=== PATIENT | female | born 1955 | race Caucasian/White ===

== ENCOUNTER 2024-07-11 07:28 | Day surgery (SDC) | payer MEDICARE, SELFPAY ==
--- NOTE | 2024-07-11 | IMM_PTH ---
PATIENT: PAULIE ZELAYA LOC: EN U#:[id number] AGE/SX: 68/F ROOM: RE07/11/[address]: Dr. Pedro Emerson DO : 1955 BED: DIS: 07/11/2024 SPEC #: [id number] RECD: 07/12/24 14:13 STATUS: [place] REQ #: [id number] EVA: 07/11/24 00:[address]: Pedro Emerson DEPT: IMMUNOHISTOCHEMISTRY RECD BY: Emanuel Pickering ENTERED: 07/12/24 14:13 SP TYPE: IMMUNO OTHR DR: SLOAN LÓPEZ, STREET ENGINEER-C Tissues: B - Stomach, NOS Procedures: H Pylori (initial) PHYSICIAN & INSTITUTION [place] [id number] SPECIMEN INFORMATION: Tissue Source: B- Greater curvature Clinical Info: Acid reflux, esophageal dysmotility Specimen Number: [id number] CPT code: 96625 METHODOLOGY: Deparaffinized sections of prefer/formalin-fixed tissue or PAP/DQ stained slides are incubated with monoclonal/polyclonal antibodies/oligonucleotide probes. Localization is made via biotin free immunoperoxidase method. Appropriate controls are performed and reacted as expected. Results on target cell population are indicated in the following table: RESULTS: ANTIBODY / CLONE RESULT Block B H Pylori (polyclonal) negative These tests were developed and their performance characteristics determined by [facility]. They may not have been cleared or approved by the U.S. Food and Drug Administration. The FDA has determined that such clearance or approval is not necessary. The above immunohistochemical/dualISH markers are ordered and reviewed by the Pathologist. INTERPRETATION: B. Stomach, greater curvature, biopsy: Negative for Helicobacter pylori organisms. AM. 07/13/2024
[2024-07-11 07:48] VITALS: BP 132/64; PULSE 66; RESP 20; TEMP 35.9; O2SAT 99; BMI 33.7
--- NOTE | 2024-07-11 07:50 | PCM.PRE.AN2 ---
ASA Classification* ASA Classification ASA Classification: 2 Assessment & Plan Anesthesia* Anesthesia Assessment Anesthesia Assessment: Discussed sedation and/or anesthesia options, risks, benefits, and alternatives with patient/parents/legal guardian/POA. Questions invited. The patient/parents/legal guardian/POA seems to understand and agrees to proceed with anesthesia plan. Reviewed the physical assessment, medical history, allergy history and patient home medications list prior to surgery/procedure/anesthetic and documented any changes. Performed airway and anesthesia risk assessments. Anesthesia Type Anesthesia Type: MAC Anesthesia Focused Assessment* Airway Assessment Mouth opens: >3 cm Mallampati Score: II Focused Labs Anesthesia Preop lab: CBC CHEMISTRY COAG Pre-Assessment Diagnosis/Proposed Procedure Planned Operative Procedure(s): EGD Anesthesia History Anesthesia History - roll tube setter: Anesthesia History - roll tube setter Hx Hospitalization No 07/07/24 15:47 Any Problems With Anesthesia No 07/07/24 15:47 Cholinesterase deficiency No 07/07/24 15:47 You/Your Family Experience No 07/07/24 15:47 fever (hyperthermia) with Relationship Recent Exposure to Contagious Disease Does patient have nerve No 07/07/24 15:47 stimulator Patient instructed to have device shut off --Does patient have Pacemaker or ICD? When Was Last Pacemaker Check QUESTION #4 FULL TEXT: You/Your Family Experience fever (hyperthermia) with Anesthesia Last Oral Intake Last Oral intake: Last Oral Intake NPO since Meds taken in AM with sips of water? Meds patient instructed to take am of surgery PONV PONV - roll tube setter: PONV - roll tube setter Female Yes 07/07/24 15:47 HX of Motion Sickness No 07/07/24 15:47 HX of N/V After Surgery No 07/07/24 15:47 Non-Smoker Yes 07/07/24 15:47 Duration of Surgery greater No 07/07/24 15:47 than 60 minutes Number of Risk Factors 2 07/07/24 15:47 PONV Score Moderate Risk 07/07/24 15:47 Respiratory Assessment Respiratory Assessment - roll tube setter: Respiratory Tract Infection Hx - roll tube setter Hx Respiratory Tract Infection No 07/07/24 15:47 STOP Sleep Apnea STOP Sleep Apnea - roll tube setter: STOP Sleep Apnea - roll tube setter Hx Hypertension No 07/07/24 15:47 Hx Sleep Apnea No 07/07/24 15:47 CPAP BIPAP Do you snore loudly (louder No 07/07/24 15:47 than talking or can be heard Do you often feel tired/ No 07/07/24 15:47 fatigued/ sleepy during daytime? Has anyone observed you stop No 07/07/24 15:47 breathing during sleep? STOP Results Negative 07/07/24 15:47 QUESTION #5 FULL TEXT : Do you snore loudly (louder than talking or can be heard through closed doors)? 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 Specify any problems Hx of Preganancy in last 3 No 07/07/24 15:47 Months Nurse Filling Out Transfusion [email or web address] 07/07/24 15:47 & Questions: Date: 07/07/24 07/07/24 15:47 Time: 15:49 07/07/24 15:47 Patient unable to answer at this time (ie. confused, unrespo /Reproduction History /Reproductive History - roll tube setter: /Reproductive Hx- roll tube setter Hx Now Gestational Age (in weeks): EDC: Hx Hx Para Hx Section SAB PFSH Medical History Wears glasses Migraine headache History of hiatal hernia Difficulty swallowing Non-smoker Home Medications ?Medication ?Instructions ?Recorded ?Last Taken ?Type lactobacillus combination no.4 3 3,000 mmu cells PO DAILY 07/07/24 07/10/24 History billion cell capsule (Probiotic) multivitamin (Daily Multi-Vitamin 1 tab PO DAILY 07/07/24 07/10/24 History tablet) turmeric 400 mg capsule 400 mg PO DAILY 11/21/24 11/24/24 History Allergy/AdvReac Type Severity Reaction Status Date / Time codeine Allergy Nausea Verified 07/11/24 07:48 Surgical History H/O wrist surgery History of hip replacement H/O esophagogastroduodenoscopy Social History Smoking Status: Never smoker Review of Systems (Anesthesia) ROS Narrative System reviewed and no additional complaints, except as documented.
--- NOTE | 2024-07-11 08:10 | HP.PCM_ITS ---
History and Physical Date of Admission: 07/11/24 Chief Complaint: Acid reflux and trouble swallowing Details: PAULIE ZELAYA, is a 68 F who presents to the office today for establishment with [facility] for complaints of difficulty swallowing and heartburn. She denies difficulty chewing, nausea, reflux, abdominal bloating, excessive gas, constipation and diarrhea. Denies hematochezia and melena. Reports mother from colon cancer, last colonoscopy was in 2018 and does not want another one. She states her last EGD was in 2018 as well and she had her esophagus dilated. She is constantly clearing her throat and reports a few occasions where she has gotten food, usually meats or breads, stuck in her esophagus. She is able to drink water to get the food down, but it seems to be taking longer. She reports sensitivities to grains in the form of breads, causes her stomach to burn. She touts a homeopathic life with organic foods and states preference for diagnostic testing over treating blindly. She reports a grain intolerance which causes her to have increased burning sensation in her stomach, and she knows to limit consumption. ROS Const Constitutional: No fatigue, fever(s) or weight change Eyes Eyes: No change in vision ENT ENT: No abnormal hearing or difficulty swallowing Resp Respiratory: Positive for cough Cardio Cardiology: No chest pain at rest, chest pain with exertion or leg pain with exertion Gastro GI: Positive for heartburn; No abdominal pain, belching, bloating, change in bowel habits, change in stool character, coffee ground emesis, constipation, cramping, diarrhea, difficulty swallowing, feeling full early, excessive flatus, incontinent of stools, Vomiting blood/hematemesis, Blood in stool, loose stools, Black,tarry stools, nausea/dyspepsia, pain with swallowing, vomiting or other Genitourinary-Female: No difficulty urinating Musc Musculoskeletal: Positive for joint pain, stiffness and sciatica; No abnormal gait or leg pain with exertion Skin Skin: No yellowing of the eye or itchy eyes Neuro Neurology: No abnormal gait or abnormal hearing Psych Psychiatric: No anxiety and No depression Endo Endocrine: No fatigue or weight change Aller/Imm Allergy/Immunologic: No food intolerance or itchy eyes Jan/Lymp Hematologic/Lymphatic: No easy bleeding or easy bruising Exam Const General: cooperative, healthy appearing, comfortable and no acute distress Nutritional Appearance: overweight Orientation: alert HENMT Head: normal to inspection Ears: hearing grossly normal bilaterally Nose: external nose normal Face and sinus: normal facial exam and face symmetric Eyes General: appearance normal, both eyes and all related structures Sclera: sclerae normal Neck Neck: normal visual inspection and full ROM Neck mass: No Chest Chest palpation & inspection: normal inspection of the chest Resp Effort & Inspection: normal respiratory effort, able to speak in complete sentences and symmetric chest movement GI Inspection: normal to inspection Skin General: no rashes or lesions noted Neuro General: patient alert, patient awake and patient oriented x3 Cognition: normal cognition Speech: speech normal Gait: normal gait Extrem General: full ROM Psych Appearance: well kempt Mental Status: mental status grossly normal Mood: congruent mood Affect: normal affect Speech and Movement: speech and movement normal Attitude: cooperative Thought Process: normal Assessment and Plan Assessment and Plan (1) Acid reflux: Status: Acute (2) Esophageal dysmotility: Status: Acute Plan: PAULIE ZELAYA, is a 68 F who presents to the office today for establishment with [facility] for complaints of difficulty swallowing and heartburn. Differential diagnoses include: EoE, esophageal spasm, esophageal stricture, GERD, gastroparesis. She is adamant in avoiding PPI, and most other medications as she is choosing to treat herself with natural remedies. Discussed risks of untreated GERD, including esophageal cancer, and she prefers to have EGD over treatment with PPI. * blood for food allergy, celiac disease testing and B12 level * EGD w/balloon for history of esophageal stricture * call with results Orders: Orders Celiac Disease Profile Today K30 - Functional dyspepsia, K31.84 - Gastroparesis I have examined the patient and the H&P has been reviewed. There are no clinical changes since date of exam.
--- NOTE | 2024-07-11 08:30 | EGD_PTH ---
PATIENT: PAULIE ZELAYA LOC: EN U#:[id number] AGE/SX: 68/F ROOM: RE07/11/[address]: Dr. Pedro Emerson DO : 1955 BED: DIS: 07/11/2024 SPEC #: [id number] RECD: 07/11/24 10:21 STATUS: C[place] REDelfino #: [id number] EVA: 07/11/24 08:[address]: Pedro Emerson DEPT: SURGICAL PATHOLOGY RECD BY: Marycarmen Dodson ENTERED: 07/11/24 11:22 SP TYPE: EGD BIOPSY OTHR DR: SLOAN LÓPEZ, JOIE Tissues: A - Esophagus, NOS B - Esophagus, NOS Procedures: Special Stain Group I Surgery Specimen Level IV Alcian Blue/PAS (control) HEADER OPERATION: EGD with biopsy, dilation PRE-OP DIAGNOSIS: Acid reflux, esophageal dysmotility TISSUE SUBMITTED: A- Distal esophagus biopsy, B- Greater curvature MICROSCOPIC DIAGNOSIS A. Distal esophagus, biopsy: Gastroesophageal junction mucosa with mild chronic inflammation. No evidence of goblet cell metaplasia. See comment. B. Stomach, greater curvature, biopsy: Mild chronic inflammation. Focal vascular ectasia. See comment. 07/12/2024 COMMENT A. Alcian blue/PAS stain with matched control supports the above diagnosis. B. The results of immunohistochemistry for Helicobacter pylori will be reported separately ([id number]). MICROSCOPIC DESCRIPTION Slides are reviewed. GROSS DESCRIPTION A. Received in fixative is one container labeled with the patient's name and designated Distal esophagus biopsy. The specimen consists of multiple irregular fragments of light rangel soft tissue that in aggregate measure 1.0 x 0.7 x 0.1 cm. The specimen is totally submitted in one cassette. B. Received in fixative is one container labeled with the patient's name and designated Greater curvature. The specimen consists of two irregular fragments of light rangel soft tissue that in aggregate measure 0.8 x 0.3 x 0.1 cm. The specimen is totally submitted in one cassette. AMPedromr 07/11/2024 TC:3 CPT:76891r6,66247
[2024-07-11 08:55] VITALS: BP 104/54; BP 132/64; PULSE 77; RESP 16; TEMP 36.3; O2SAT 93
--- NOTE | 2024-07-11 08:56 | OP.EGD_ITS ---
Patient Name: Jacy Vasquez Procedure Date: 07/11/2024 8:34 AM Date of : 1955 Age: 68 Procedure: Upper GI endoscopy Indications: Dysphagia Providers: Pedro Emerson DO Referring MD: Kelley French Medicines: Monitored Anesthesia Care Patient Profile: This is a 68 year old female. Refer to note in patient chart for documentation of history and physical. Patient has symptoms of chronic dysphagia and dysphagia with both liquids and solids. Complications: No immediate complications. Procedure: Pre-Anesthesia Assessment: - Prior to the procedure, a History and Physical was performed, and patient medications and allergies were reviewed. The patient is competent. The risks and benefits of the procedure and the sedation options and risks were discussed with the patient. All questions were answered and informed consent was obtained. Patient identification and proposed procedure were verified by the physician in the pre-procedure area. Mental Status Examination: alert and oriented. Airway Examination: normal oropharyngeal airway and neck mobility. Respiratory Examination: clear to auscultation. CV Examination: normal. Prophylactic Antibiotics: The patient does not require prophylactic antibiotics. Prior Anticoagulants: The patient has taken no anticoagulant or antiplatelet agents except for NSAID medication. ASA Grade Assessment: II - A patient with mild systemic disease. After reviewing the risks and benefits, the patient was deemed in satisfactory condition to undergo the procedure. The anesthesia plan was to use monitored anesthesia care (MAC). Immediately prior to administration of medications, the patient was re-assessed for adequacy to receive sedatives. The heart rate, respiratory rate, oxygen saturations, blood pressure, adequacy of pulmonary ventilation, and response to care were monitored throughout the procedure. The physical status of the patient was re-assessed after the procedure. After obtaining informed consent, the endoscope was passed under direct vision. Throughout the procedure, the patient's blood pressure, pulse, and oxygen saturations were monitored continuously. The Endoscope was introduced through the mouth, and advanced to the second part of duodenum. The upper GI endoscopy was accomplished without difficulty. The patient tolerated the procedure well. Scope In: 8:44:00 AM Scope Out: 8:49:41 AM Total Procedure Duration Time 0 hours 5 minutes 41 seconds Findings: A moderate Schatzki ring was found in the upper third of the esophagus and in the lower third of the esophagus. A guidewire was placed and the scope was withdrawn. Dilation was performed with a Savary dilator with no resistance at 57 Fr. LA Grade B (one or more mucosal breaks greater than 5 mm, not extending between the tops of two mucosal folds) esophagitis with no bleeding was found 40 to 42 cm from the incisors. Biopsies were taken with a cold forceps for histology. Verification of patient identification for the specimen was done. Estimated blood loss was minimal. A medium-sized hiatal hernia was present. Many non-bleeding linear gastric ulcers with no stigmata of bleeding were found on the greater curvature of the stomach and at the incisura. The largest lesion was 10 mm in largest dimension. Biopsies were taken with a cold forceps for histology. Verification of patient identification for the specimen was done. Biopsies were taken with a cold forceps for Helicobacter pylori testing. Verification of patient identification for the specimen was done. No gross lesions were noted in the first portion of the duodenum. Impression: - Moderate Schatzki ring. Dilated. - LA Grade B reflux esophagitis with no bleeding. Biopsied. - Medium-sized hiatal hernia. - Non-bleeding gastric ulcers with no stigmata of bleeding. Biopsied. - No gross lesions in the first portion of the duodenum. Recommendation: - Await pathology results. - Repeat upper endoscopy in 4 months for surveillance. -Omeprazole 20 mg twice a day x 4 months - Continue present medications. Procedure Code(s): --- Professional --- 98506, Esophagogastroduodenoscopy, flexible, transoral; with insertion of guide wire followed by passage of dilator(s) through esophagus over guide wire 65384, 59,51, Esophagogastroduodenoscopy, flexible, transoral; with biopsy, single or multiple CPT copyright 2021 [employer]. All rights reserved. The codes documented in this report are preliminary and upon kick press operator review may be revised to meet current compliance requirements. Pedro Emerson DO 07/11/2024 8:55:38 AM This report has been signed electronically. Number of Addenda: 0 Note Initiated On: 07/11/2024 8:34 AM
--- NOTE | 2024-07-11 08:56 | OP.CCLET_ITS ---
07/11/2024 Kelley French Re : Upper GI endoscopy procedure for Jacy Vasquez Dear Ruiz This procedure was performed on Thursday, July 11, 2024. My impressions and recommendations are as follows: Impressions : - Moderate Schatzki ring. Dilated. - LA Grade B reflux esophagitis with no bleeding. Biopsied. - Medium-sized hiatal hernia. - Non-bleeding gastric ulcers with no stigmata of bleeding. Biopsied. - No gross lesions in the first portion of the duodenum. Recommendations : - Await pathology results. - Repeat upper endoscopy in 4 months for surveillance. -Omeprazole 20 mg twice a day x 4 months - Continue present medications. My findings are described in the full procedure note, which is enclosed. If I can be of further assistance, please feel free to contact me at . Sincerely, Pedro Emerson, 07/11/2024 8:55:38 AM This report has been signed electronically.
[2024-07-11 09:00] VITALS: BP 104/54; BP 115/67; BP 132/64; PULSE 67; PULSE 72; RESP 16; TEMP 36.3; O2SAT 93; O2SAT 96
--- NOTE | 2024-07-11 09:00 | PCM.POST.ANE ---
Anesthesia: Postop Eval I Current Vital Signs Temperature: 97.3 F Pulse Rate: 67 Blood Pressure: 104/54 Respiratory Rate: 16 Pulse Ox: 96 Oxygen Delivery Method: Room Air Assessment Airway patent: Yes Spontaneous unlabored respirations: Yes Mental status: Awake and Calm nausea: No Vomiting: No Anesthesia Complication: No Fluid Hydration Crystalloid volume administer (ml): 30 Total IV fluid infused: 30 Progress Note Anesthesia document: Postop Eval 1 completed: Yes
[2024-07-11 09:05] VITALS: BP 116/73; BP 132/64; PULSE 68; RESP 16; O2SAT 92
[2024-07-11 09:10] VITALS: BP 106/71; BP 132/64; PULSE 66; RESP 16; TEMP 36.1; O2SAT 93
--- NOTE | 2024-07-11 09:22 | PCM.POSTANE2 ---
Anesthesia Postop Eval I Sum Postop Eval Completion status Anesthesia document: Postop Eval 1 completed: Yes Anesthesia Postop Eval I Summary Anesthesia Postop Eval I Summary: Anesthesia Postop Eval I: Assessment Summary Airway patent Yes 07/11/24 09:00 [email or web address] Spontaneous unlabored Yes 07/11/24 09:00 [email or web address] respirations Mental status Awake,Calm 07/11/24 09:00 [email or web address] nausea No 07/11/24 09:00 [email or web address] Vomiting No 07/11/24 09:00 [email or web address] Anesthesia Postop Eval I: Fluid Summary Crystalloid volume administer 30 07/11/24 09:00 [email or web address] (ml) Colloids volume administered ( ml) Blood Product volume administered (ml) Total IV fluid infused 30 07/11/24 09:00 [email or web address] Anesthesia Postop Eval I: Summary Notes Anesthesia Complication No 07/11/24 09:00 [email or web address] Anesthesia Complication Comment: Post-operative progress note Anesthesia: Postop Eval II Evaluation Mental status: Awake Pain Level: 1 nausea: No Vomiting: No
[2024-07-11 09:40] VITALS: BP 132/64
== END 2024-07-11 09:40 | disposition home or self-care (01) ==
LOC: EN 07:29 → AC 07:45
PROVIDERS: PCP Nurse Practitioner Family; Referring Provider Nurse Practitioner Family; Visit Provider Internal Medicine Gastroenterology
PROC: 0DJ08ZZ Inspection of Upper Intestinal Tract, Via Natural or Artificial Opening Endoscopic (ICD-10-PCS; CPT 43235; principal; 2024-07-11 08:25)
DX: K44.9 Diaphragmatic hernia without obstruction or gangrene (principal); K25.9 Gastric ulcer, unspecified as acute or chronic, without hemorrhage or perforation; K22.4 Dyskinesia of esophagus; K22.2 Esophageal obstruction; K21.00 Gastro-esophageal reflux disease with esophagitis, without bleeding
CPT/HCPCS: 43248; 43239; 88305; 88312; 88342; A4216; C1769; J2405

== ENCOUNTER → 2024-09-29 | Outpatient (CLI) | payer MEDICARE, SELFPAY ==
--- NOTE | 2024-09-29 11:50 | NM_ITS ---
PROCEDURE: GASTRIC EMPTYING STUDY REASON FOR EXAM: Gastroparesis. TECHNIQUE: Nuclear medicine solid phase gastric emptying study. Imaging out to 60 minutes. RADIOPHARMACEUTICAL: 1.1 mCi technetium 99 M sulfur colloid in oatmeal. COMPARISON: None. FINDINGS: Rapid gastric emptying was seen. A selection or gastric emptying times is as follows: 29.5 minutes: 68% gastric emptying; 47.5 minutes: 74% gastric emptying; 59.5 minute: 75% gastric emptying. Although the linear fit gastric emptying half time was calculated at 33.8 minutes, the right data fit shows a half-time of 14.3 minutes. NM/Gastric Emptying Study IMPRESSION: Prompt gastric emptying using oatmeal. No evidence delayed gastric emptying. Reading Location: [id number]
== END | disposition home or self-care (01) ==
PROVIDERS: PCP Nurse Practitioner Family; Referring Provider Surgery; Visit Provider Surgery
DX: K31.84 Gastroparesis (principal); K22.4 Dyskinesia of esophagus; K30 Functional dyspepsia; K21.9 Gastro-esophageal reflux disease without esophagitis
CPT/HCPCS: 78264; A9541

== ENCOUNTER 2024-11-03 08:15 | Day surgery (SDC) | payer MEDICARE, SELFPAY ==
[2024-11-03 08:33] VITALS: BP 129/70; PULSE 72; RESP 16; TEMP 36.4; O2SAT 95; BMI 33.4
--- NOTE | 2024-11-03 09:07 | PCM.PRE.AN2 ---
ASA Classification* ASA Classification ASA Classification: 2 Assessment & Plan Anesthesia* Anesthesia Assessment Anesthesia Assessment: Discussed sedation and/or anesthesia options, risks, benefits, and alternatives with patient/parents/legal guardian/POA. Questions invited. The patient/parents/legal guardian/POA seems to understand and agrees to proceed with anesthesia plan. Reviewed the physical assessment, medical history, allergy history and patient home medications list prior to surgery/procedure/anesthetic and documented any changes. Performed airway and anesthesia risk assessments. Anesthesia Type Anesthesia Type: MAC History Source History Obtained from:: Patient and Chart Anesthesia Focused Assessment* Temperature: 97.6 F Pulse Rate: 72 Blood Pressure: 129/70 Respiratory Rate: 16 Pulse Ox: 95 Oxygen Delivery Method: Room Air Airway Assessment Mouth opens: >3 cm Mallampati Score: IV Teeth Condition: Caps/Crowns (Patient has several crowns. They are all tight.) Neck Range of motion (ROM): Full ROM Focused Labs Anesthesia Preop lab: CBC CHEMISTRY COAG Pre-Assessment Diagnosis/Proposed Procedure Planned Operative Procedure(s): EGD Anesthesia History Anesthesia History - rn utilization management um: Anesthesia History - rn utilization management um Hx Hospitalization No 11/01/24 08:50 Any Problems With Anesthesia No 11/01/24 08:50 Cholinesterase deficiency No 11/01/24 08:50 You/Your Family Experience No 11/01/24 08:50 fever (hyperthermia) with Relationship Recent Exposure to Contagious No 11/03/24 08:33 Disease Does patient have nerve No 11/01/24 08:50 stimulator Patient instructed to have device shut off --Does patient have Pacemaker No 11/03/24 08:33 or ICD? When Was Last Pacemaker Check QUESTION #4 FULL TEXT: You/Your Family Experience fever (hyperthermia) with Anesthesia Last Oral Intake Last Oral intake: Last Oral Intake NPO since 00:00 11/03/24 08:33 Meds taken in AM with sips of No 11/03/24 08:33 water? Meds patient instructed to take am of surgery PONV PONV - rn utilization management um: PONV - rn utilization management um Female Yes 11/01/24 08:50 HX of Motion Sickness No 11/01/24 08:50 HX of N/V After Surgery No 11/01/24 08:50 Non-Smoker No 11/01/24 08:50 Duration of Surgery greater No 11/01/24 08:50 than 60 minutes Number of Risk Factors 1 11/01/24 08:50 PONV Score Low Risk 11/01/24 08:50 Height & Weight Height & Weight: Anesthesia: Height & Weight Height 5 ft 6 in 11/03/24 08:33 Weight: 94 kg 11/03/24 08:33 Body Mass Index (BMI) 33.4 11/03/24 08:33 Respiratory Assessment Respiratory Assessment - rn utilization management um: Respiratory Tract Infection Hx - rn utilization management um Hx Respiratory Tract Infection No 11/01/24 08:50 STOP Sleep Apnea STOP Sleep Apnea - rn utilization management um: STOP Sleep Apnea - rn utilization management um Hx Hypertension No 11/01/24 08:50 Hx Sleep Apnea No 11/01/24 08:50 CPAP BIPAP Do you snore loudly (louder No 11/01/24 08:50 than talking or can be heard Do you often feel tired/ No 11/01/24 08:50 fatigued/ sleepy during daytime? Has anyone observed you stop No 11/01/24 08:50 breathing during sleep? STOP Results Negative 11/01/24 08:50 QUESTION #5 FULL TEXT : Do you snore loudly (louder than talking or can be heard through closed doors)? Tobacco Use History Tobacco Use History - rn utilization management um: Tobacco Use History - rn utilization management um Tobacco Use Smoking Status Never smoker 11/01/24 08:50 Hx Tobacco Use No 11/01/24 08:50 Years Smoking Packs Smoked per Day Smoking Cessation Date was within the last 15 years Hx Smoking Cessation Date Hx Smoking Cessation Counseling Hematologic Medial History Hematologic Hx - rn utilization management um: Hematologic Medical Hx - dispatch lead Hx of Blood Transfusion No 11/01/24 08:50 Hx of Transfusion in last 3 No 11/01/24 08:50 Months Date of Last Transfusion (if within last 3 months) Ever experience any problems No 11/01/24 08:50 with transfusion(s)? Specify any problems Hx of Preganancy in last 3 No 11/01/24 08:50 Months Nurse Filling Out Transfusion VCHRISTIN 11/01/24 08:50 & Questions: Date: 11/01/24 11/01/24 08:50 Time: 08:51 11/01/24 08:50 Patient unable to answer at this time (ie. confused, unrespo /Reproduction History /Reproductive History - rn utilization management um: /Reproductive Hx- rn utilization management um Hx Now Gestational Age (in weeks): EDC: Hx Hx Para Hx Section [facility] Medical History (Updated 11/03/24 @ 09:[address] Camacho Mosley MD) Wears glasses Migraine headache History of hiatal hernia Difficulty swallowing Non-smoker Indigestion Acid reflux Home Medications ?Medication ?Instructions ?Recorded ?Last Taken ?Type lactobacillus combination no.4 3 3,000 mmu cells PO DAILY 07/07/24 07/10/24 History billion cell capsule (Probiotic) multivitamin (Daily Multi-Vitamin 1 tab PO DAILY 07/07/24 07/10/24 History tablet) turmeric 400 mg capsule 400 mg PO DAILY 07/07/24 07/10/24 History cholecalciferol (vitamin D3) 125 125 mcg PO QDAY 09/13/24 Unknown History mcg (5,000 unit) capsule digestive enzymes 1 cap PO TID 09/13/24 Unknown History famotidine 20 mg tablet (Pepcid) 20 mg PO .prn PRN GERD 09/13/24 Unknown History omega-3 fatty acids-fish oil 360 3 cap PO QDAY 09/13/24 Unknown History mg-1,200 mg capsule (Fish Oil) peppermint oil 50 mg 50 mg PO DAILY 09/13/24 Unknown History capsule,delayed release THYROID SYNERGY 2 tab PO DAILY 11/01/24 Unknown History vitamin B complex 1 cap PO DAILY 11/01/24 Unknown History Allergy/AdvReac Type Severity Reaction Status Date / Time codeine Allergy Nausea Verified 11/03/24 08:31 Surgical History S/P laparoscopy S/P tonsillectomy H/O wrist surgery History of hip replacement H/O esophagogastroduodenoscopy Social History Smoking Status: Never smoker alcohol intake: current Review of Systems (Anesthesia) ROS Narrative System reviewed and no additional complaints, except as documented.
--- NOTE | 2024-11-03 09:11 | PCM.HP.STD ---
HPI - General General Date of Admission: 11/03/24 Date of Service: 11/03/24 Chief Complaint: GERD and Dysphagia HPI Narrative PAULIE ZELAYA, is a 68 F who presents for the evaluation of Acid reflux and trouble swallowing She denies difficulty chewing, nausea, reflux, abdominal bloating, excessive gas, constipation and diarrhea. Denies hematochezia and melena. Reports mother from colon cancer, last colonoscopy was in 2018 and does not want another one. She states her last EGD was in 2018 as well and she had her esophagus dilated. She is constantly clearing her throat and reports a few occasions where she has gotten food, usually meats or breads, stuck in her esophagus. She is able to drink water to get the food down, but it seems to be taking longer. She reports sensitivities to grains in the form of breads, causes her stomach to burn. She touts a homeopathic life with organic foods and states preference for diagnostic testing over treating blindly. She reports a grain intolerance which causes her to have increased burning sensation in her stomach, and she knows to limit consumption. [facility] Medical History Wears glasses Migraine headache History of hiatal hernia Difficulty swallowing Non-smoker Indigestion Esophageal dysmotility Acid reflux Home Medications ?Medication ?Instructions ?Recorded ?Last Taken ?Type lactobacillus combination no.4 3 3,000 mmu cells PO DAILY 07/07/24 07/10/24 History billion cell capsule (Probiotic) multivitamin (Daily Multi-Vitamin 1 tab PO DAILY 07/07/24 07/10/24 History tablet) turmeric 400 mg capsule 400 mg PO DAILY 07/07/24 07/10/24 History cholecalciferol (vitamin D3) 125 125 mcg PO QDAY 09/13/24 Unknown History mcg (5,000 unit) capsule digestive enzymes 1 cap PO TID 09/13/24 Unknown History famotidine 20 mg tablet (Pepcid) 20 mg PO .prn PRN GERD 09/13/24 Unknown History omega-3 fatty acids-fish oil 360 3 cap PO QDAY 09/13/24 Unknown History mg-1,200 mg capsule (Fish Oil) peppermint oil 50 mg 50 mg PO DAILY 09/13/24 Unknown History capsule,delayed release THYROID SYNERGY 2 tab PO DAILY 11/01/24 Unknown History vitamin B complex 1 cap PO DAILY 11/01/24 Unknown History Allergy/AdvReac Type Severity Reaction Status Date / Time codeine Allergy Nausea Verified 11/03/24 08:31 Surgical History S/P laparoscopy S/P tonsillectomy H/O wrist surgery History of hip replacement H/O esophagogastroduodenoscopy Social History Smoking Status: Never smoker alcohol intake: current ROS Constitutional Constitutional: Denies fatigue, fever(s), poor appetite, weight gain or weight loss Gastrointestinal Gastrointestinal: Denies belching, bloating, change in bowel habits, change in stool character, chewing difficulty, coffee ground emesis, constipation, cramping, diarrhea, dyspepsia, dysphagia, early satiety, excessive flatus, fecal incontinence, heartburn, hematemesis, hematochezia, hemorrhoids, loose stools, melena, nausea, odynophagia, rectal bleeding, tenesmus, vomiting or weight changes Vital Signs Vital Signs Vital Signs: 11/03/24 08:33 11/03/24 08:33 Temperature 97.6 F L Temperature Source Temporal Pulse Rate 72 Respiratory Rate 16 Respiratory Pattern Normal Blood Pressure 129/70 H Blood Pressure Mean 89 Blood Pressure Source Monitor Blood Pressure Position Sitting Blood Pressure Location Left Arm Pulse Ox 95 Oxygen Delivery Method Room Air Weight Weight: 207 lb 3.752 oz Body Mass Index (BMI) 33.4 Physical Exam Const alert, oriented x3, no apparent distress and healthy appearing General Appearance: cooperative GI normal to inspection, nondistended, normoactive bowel sounds, soft to palpation, non-tender and non-distended Percussion: normal to percussion Rectal Exam: deferred Assessment & Plan Assessment/Plan (1) Esophageal dysmotility: (2) Indigestion: (3) Acid reflux: PLAN: Assessment and Plan Assessment and Plan (1) Acid reflux: Status: Acute (2) Esophageal dysmotility: Status: Acute Plan: PAULIE ZELAYA, is a 68 F who presents to the office today for establishment with [facility] for complaints of difficulty swallowing and heartburn. Differential diagnoses include: EoE, esophageal spasm, esophageal stricture, GERD, gastroparesis. She is adamant in avoiding PPI, and most other medications as she is choosing to treat herself with natural remedies. Discussed risks of untreated GERD, including esophageal cancer, and she prefers to have EGD over treatment with PPI.
[2024-11-03 09:13] VITALS: BP 129/70; PULSE 72; RESP 16; TEMP 36.4; O2SAT 95
--- NOTE | 2024-11-03 09:15 | EGD_PTH ---
PATIENT: PAULIE ZELAYA LOC: EN U#:[id number] AGE/SX: 68/F ROOM: RE11/03/[address]: Dr. Pedro Emerson DO : 1955 BED: DIS: 11/03/2024 SPEC #: [id number] RECD: 11/03/24 14:43 STATUS: [place] REDelfino #: [id number] EVA: 11/03/24 09:[address]: Pedro Emerson DEPT: SURGICAL PATHOLOGY RECD BY: Terrence Mcintyre ENTERED: 11/03/24 15:15 SP TYPE: EGD BIOPSY HUSEYIN DR: SLOAN LÓPEZ, SENIOR PROJECT MANAGER-C Tissues: A - Esophagus, NOS Procedures: Special Stain Group I Surgery Specimen Level IV Alcian Blue/PAS (control) HEADER OPERATION: EGD PRE-OP DIAGNOSIS: Esophageal dysmotility, indigestion, acid reflux TISSUE SUBMITTED: A- Distal esophagus biopsy MICROSCOPIC DIAGNOSIS Distal esophagus, biopsy:Squamous and gastric mucosa with rare goblet cells on Alcian blue/PAS stain with appropriate controls (see comment)Zackery Ambriz MD, 11/10/2024 COMMENT The goblet cells are very rare and only appear on the Alcian blue/PAS stain. If this specimen is from the tubular esophagus it may indicate Ramírez's mucosa. MICROSCOPIC DESCRIPTION Slides are reviewed. GROSS DESCRIPTION A. Received in fixative is one container labeled with the patient's name and designated Distal esophagus biopsy. The specimen consists of multiple irregular fragments of light rangel soft tissue that in aggregate measure 0.7 x 0.5 x 0.2 cm. The specimen is totally submitted in one cassette. MS/mr 11/03/2024 CPT:[id number] TC:3
[2024-11-03 09:41] VITALS: BP 104/81; BP 112/88; BP 129/70; PULSE 64; PULSE 75; RESP 16; RESP 18; TEMP 36.4; O2SAT 96
--- NOTE | 2024-11-03 09:41 | PCM.POST.ANE ---
Anesthesia: Postop Eval I Current Vital Signs Temperature: 97.5 F Pulse Rate: 75 Blood Pressure: 112/88 Respiratory Rate: 18 Pulse Ox: 96 Assessment Airway patent: Yes Spontaneous unlabored respirations: Yes nausea: No Vomiting: No Anesthesia Complication: No Fluid Hydration Crystalloid volume administer (ml): 10 Total IV fluid infused: 10 Progress Note Anesthesia document: Postop Eval 1 completed: No
[2024-11-03 09:45] VITALS: BP 118/82; BP 129/70; PULSE 66; RESP 16; O2SAT 93
--- NOTE | 2024-11-03 09:46 | OP.CCLET_ITS ---
11/03/2024 Kelley French Re : Upper GI endoscopy procedure for Jacy Vasquez Dear Ruiz This procedure was performed on October. My impressions and recommendations are as follows: Impressions : - Z-line irregular, 40 cm from the incisors. Biopsied. - Large hiatal hernia. Recommendations : - Discharge patient to home. - Resume previous diet. - Continue present medications. - Await pathology results. - Repeat upper endoscopy in 1 year for surveillance. My findings are described in the full procedure note, which is enclosed. If I can be of further assistance, please feel free to contact me at . Sincerely, Pedro Emerson, 11/03/2024 9:46:03 AM This report has been signed electronically.
--- NOTE | 2024-11-03 09:46 | OP.EGD_ITS ---
Patient Name: Jacy Vasquez Procedure Date: 11/03/2024 9:13 AM Date of : 1955 Age: 68 Procedure: Upper GI endoscopy Indications: Esophageal reflux Providers: Pedro Emerson DO Referring MD: Kelley French Medicines: Monitored Anesthesia Care Patient Profile: This is a 68 year old female. Refer to note in patient chart for documentation of history and physical. Patient has symptoms of chronic heartburn. Complications: No immediate complications. Procedure: Pre-Anesthesia Assessment: - Prior to the procedure, a History and Physical was performed, and patient medications and allergies were reviewed. The patient is competent. The risks and benefits of the procedure and the sedation options and risks were discussed with the patient. All questions were answered and informed consent was obtained. Patient identification and proposed procedure were verified by the physician in the pre-procedure area. Mental Status Examination: alert and oriented. Airway Examination: normal oropharyngeal airway and neck mobility. Respiratory Examination: clear to auscultation. CV Examination: normal. Prophylactic Antibiotics: The patient does not require prophylactic antibiotics. Prior Anticoagulants: The patient has taken no anticoagulant or antiplatelet agents. ASA Grade Assessment: III - A patient with severe systemic disease. After reviewing the risks and benefits, the patient was deemed in satisfactory condition to undergo the procedure. The anesthesia plan was to use monitored anesthesia care (MAC). Immediately prior to administration of medications, the patient was re-assessed for adequacy to receive sedatives. The heart rate, respiratory rate, oxygen saturations, blood pressure, adequacy of pulmonary ventilation, and response to care were monitored throughout the procedure. The physical status of the patient was re-assessed after the procedure. After obtaining informed consent, the endoscope was passed under direct vision. Throughout the procedure, the patient's blood pressure, pulse, and oxygen saturations were monitored continuously. The Endoscope was introduced through the mouth, and advanced to the second part of duodenum. The upper GI endoscopy was accomplished without difficulty. Scope In: 9:31:34 AM Scope Out: 9:35:25 AM Total Procedure Duration Time 0 hours 3 minutes 51 seconds Findings: The Z-line was irregular and was found 40 cm from the incisors. Biopsies were taken with a cold forceps for histology. Verification of patient identification for the specimen was done. Estimated blood loss was minimal. A large hiatal hernia was present. The second portion of the duodenum was normal. Impression: - Z-line irregular, 40 cm from the incisors. Biopsied. - Large hiatal hernia. Recommendation: - Discharge patient to home. - Resume previous diet. - Continue present medications. - Await pathology results. - Repeat upper endoscopy in 1 year for surveillance. Procedure Code(s): --- Professional --- 34625, Esophagogastroduodenoscopy, flexible, transoral; with biopsy, single or multiple CPT copyright 2021 [employer]. All rights reserved. The codes documented in this report are preliminary and upon labor mediator review may be revised to meet current compliance requirements. Pedro Emerson DO 11/03/2024 9:46:03 AM This report has been signed electronically. Number of Addenda: 0 Note Initiated On: 11/03/2024 9:13 AM
[2024-11-03 09:50] VITALS: BP 122/81; BP 129/70; PULSE 62; RESP 16; TEMP 36.4; O2SAT 93
[2024-11-03 10:08] VITALS: BP 129/70
--- NOTE | 2024-11-03 10:31 | POSTOPAN2_ITS ---
Anesthesia Postop Eval I Sum Postop Eval Completion status Anesthesia document: Postop Eval 1 completed: No Anesthesia Postop Eval I Summary Anesthesia Postop Eval I Summary: Anesthesia Postop Eval I: Assessment Summary Airway patent Yes 11/03/24 09:41 SERVICE VEHICLE OPERATOR.CSIR Spontaneous unlabored Yes 11/03/24 09:41 SERVICE VEHICLE OPERATOR.CSIR respirations Mental status nausea No 11/03/24 09:41 SERVICE VEHICLE OPERATOR.CSIR Vomiting No 11/03/24 09:41 SERVICE VEHICLE OPERATOR.CSIR Anesthesia Postop Eval I: Fluid Summary Crystalloid volume administer 10 11/03/24 09:41 SERVICE VEHICLE OPERATOR.CSIR (ml) Colloids volume administered ( ml) Blood Product volume administered (ml) Total IV fluid infused 10 11/03/24 09:41 SERVICE VEHICLE OPERATOR.CSIR Anesthesia Postop Eval I: Summary Notes Anesthesia Complication No 11/03/24 09:41 SERVICE VEHICLE OPERATOR.CSIR Anesthesia Complication Comment: Post-operative progress note Anesthesia: Postop Eval II Evaluation Mental status: Awake Pain Level: 0 nausea: No Vomiting: No
--- NOTE | 2024-11-03 10:31 | PCM.POSTANE2 ---
Anesthesia Postop Eval I Sum Postop Eval Completion status Anesthesia document: Postop Eval 1 completed: No Anesthesia Postop Eval I Summary Anesthesia Postop Eval I Summary: Anesthesia Postop Eval I: Assessment Summary Airway patent Yes 11/03/24 09:41 CREDIT REVIEW MANAGER.CSIR Spontaneous unlabored Yes 11/03/24 09:41 CREDIT REVIEW MANAGER.CSIR respirations Mental status nausea No 11/03/24 09:41 CREDIT REVIEW MANAGER.CSIR Vomiting No 11/03/24 09:41 CREDIT REVIEW MANAGER.CSIR Anesthesia Postop Eval I: Fluid Summary Crystalloid volume administer 10 11/03/24 09:41 CREDIT REVIEW MANAGER.CSIR (ml) Colloids volume administered ( ml) Blood Product volume administered (ml) Total IV fluid infused 10 11/03/24 09:41 CREDIT REVIEW MANAGER.CSIR Anesthesia Postop Eval I: Summary Notes Anesthesia Complication No 11/03/24 09:41 CREDIT REVIEW MANAGER.CSIR Anesthesia Complication Comment: Post-operative progress note Anesthesia: Postop Eval II Evaluation Mental status: Awake Pain Level: 0 nausea: No Vomiting: No
== END 2024-11-03 10:25 | disposition home or self-care (01) ==
LOC: EN 08:18 → AC 08:19
PROVIDERS: PCP Nurse Practitioner Family; Referring Provider Nurse Practitioner Family; Visit Provider Internal Medicine Gastroenterology
PROC: 0DJ08ZZ Inspection of Upper Intestinal Tract, Via Natural or Artificial Opening Endoscopic (ICD-10-PCS; CPT 43235; principal; 2024-11-03 09:10)
DX: K44.9 Diaphragmatic hernia without obstruction or gangrene (principal); K21.9 Gastro-esophageal reflux disease without esophagitis; R13.10 Dysphagia, unspecified; K22.4 Dyskinesia of esophagus; Z80.0 Family history of malignant neoplasm of digestive organs
CPT/HCPCS: 43239; 88305; 88312; A4216; J2405